=== PATIENT | female | born 1965 | race Caucasian/White ===

== ENCOUNTER 2016-10-15 04:11 | Emergency (ER) | payer BC ==
[~2016-10-15] VITALS: Ht 162.6 cm; Wt 52.2 kg
[2016-10-15] MEDS ORDERED: BUPR150T5 PO (04:22)
[2016-10-15 04:34] LABS: *BILIRUBIN,URIN NEGATIVE (NEGATIVE); *BLOOD, URINE 1+ (NEGATIVE); *CLARITY,URINE CLEAR (CLEAR); *COLOR,URINE YELLOW (YELLOW); *KETONES,URINE TRACE (NEGATIVE); *PROTEIN,URINE TRACE (NEGATIVE); *UROBILINOGEN,URINE 0.2 E.U./dl (NORMAL); LEUKOCYTE ESTERASE ,URINE NEGATIVE (NEGATIVE); NITRITE, URINE NEGATIVE (NEGATIVE); UGLUCOSE NEGATIVE (NEGATIVE)
[2016-10-15 04:39] LABS: *URINE HCG, QUAL NEGATIVE (NEGATIVE); BACTERIA,URINE MODERATE /HPF (NONE SEEN); SQUAMOUS EPITHELIAL CELL,UR MANY /HPF (NONE SEEN)
[2016-10-15] MEDS ORDERED: OXYCODONE/APAP 5-325 MG TABLET PO ONE (04:45)
[2016-10-15] MEDS ORDERED: ONDANSETRON ODT 4 MG TAB.RAPDIS SL ONE (04:45)
[2016-10-15] MEDS ORDERED: OXYCODONE/APAP 5-325 MG TABLET ONE (04:48)
[2016-10-15] MEDS ORDERED: ONDANSETRON ODT 4 MG TAB.RAPDIS ONE (04:48)
[2016-10-15] MEDS ORDERED: TAMSULOSIN HCL 0.4 MG CAP.SR.24H PO ONE (05:00)
[2016-10-15] MEDS ORDERED: IBUPROFEN 600 MG TABLET PO ONE (05:00)
[2016-10-15] MEDS ORDERED: IBUPROFEN 600 MG TABLET ONE (05:10)
[2016-10-15] MEDS ORDERED: TAMSULOSIN HCL 0.4 MG CAP.SR.24H ONE (05:11)
--- NOTE | 2016-10-15 05:18 | NUR ---
Pt states "I feel alot better now."
--- NOTE | 2016-10-15 05:24 | NUR ---
Patient discharged to home in stable conditon with friend taking Pt home. Written and verbal after care instructions given. Patient verbalizes understanding of instructions. walked out of ER with steady gait
[2016-10-15 05:25] VITALS: BP 110/75
== END 2016-10-15 05:25 | disposition home or self-care (01) ==
LOC: ER 04:24
DX: N23 Unspecified renal colic (principal); F32.9 Major depressive disorder, single episode, unspecified
CPT/HCPCS: 84703; 87086; A4663; Q0162